=== PATIENT | female | born 1955 | race Caucasian/White ===

== ENCOUNTER 2017-08-13 08:33 | Observation (INO) | payer BC ==
[~2017-08-13 08:33] MED LIST: ACETAMINOPHEN 1000 MG/100 ML IVPB; CEFAZOLIN 1 GM INJ; CEFAZOLIN 2 GM/50 ML (PMX) 50 ML IVPB
[2017-08-13] MEDS ORDERED: MIDAZOLAM 1 MG/ML 2 ML INJ (09:54)
[2017-08-13] MEDS ORDERED: FENTAnyl 50 MCG/ML VIAL (09:55)
[2017-08-13] MEDS ORDERED: PROPOFOL 20 ML (09:56)
[2017-08-13] MEDS ORDERED: LIDOCAINE 1% (MDV) 20 ML INJ (09:58)
[2017-08-13] MEDS ORDERED: GLYCOPYRROLATE 0.4 MG INJ (10:01)
[2017-08-13] MEDS ORDERED: NEOSTIGMINE 3 MG/3 ML SYRINGE (10:01)
[2017-08-13] MEDS ORDERED: SUCCINYLCHOLINE CHLORIDE 100 MG/5 ML SYG IV (10:20)
[2017-08-13] MEDS ORDERED: BUPIVACAINE 0.25% (MPF) 30 ML INJ (10:30)
[2017-08-13] MEDS ORDERED: BUPIVACAINE 0.5%/EPI (SDV) 30 ML INJ (10:30)
[2017-08-13] MEDS ORDERED: ONDANSETRON 4 MG INJ (10:56)
[2017-08-13] MEDS ORDERED: METOCLOPRAMIDE 10 MG INJ (10:58)
[2017-08-13] MEDS: SODIUM CHLORIDE 0.9% 1L IRRIG IRR (11:09)
[2017-08-13] MEDS: BUPIVACAINE 0.25% (MPF) 30 ML INJ INJ (11:34)
[2017-08-13] MEDS ORDERED: ALBUTEROL 0.5% (NEB) 2.5 MG/0.5 ML AMP (11:50)
[2017-08-13] MEDS: ALBUTEROL 0.083% (NEB) 2.5 MG/3 ML AMP HHN (11:50)
[2017-08-13] MEDS: IPRATROPIUM (NEB) 0.5 MG/2.5 ML AMP HHN (11:50)
[2017-08-13] MEDS ORDERED: FENTAnyl 50 MCG/ML VIAL IV ×2 (12:00)
[2017-08-13] MEDS: BISACODYL (EC) 5 MG TAB PO (12:00)
[2017-08-13] MEDS ORDERED: ONDANSETRON 4 MG INJ IV ×2 (12:00→20:00)
[2017-08-13] MEDS ORDERED: hydrALAzine 20 MG INJ IV (12:00)
[2017-08-13] MEDS ORDERED: HYDROmorphONE (0.2 MG/ML) 10ML SYG IV ×2 (12:00)
[2017-08-13] MEDS ORDERED: METOCLOPRAMIDE 10 MG INJ IV (12:00)
[2017-08-13] MEDS ORDERED: ALBUTEROL/IPRATROPIUM (NEB) 3 ML AMP HHN (14:00)
[2017-08-13] MEDS: HYDROCODONE/APAP (5/325) TAB PO ×2 (15:47→23:55)
[2017-08-13] MEDS ORDERED: HYDROmorphONE 0.5 MG/0.5 ML SYG IV (16:00)
[2017-08-13] MEDS: METHYLPREDNISOLONE 40 MG INJ IV (19:46)
[2017-08-13] MEDS ORDERED: MAGNESIUM HYDROXIDE 30ML CUP PO (20:00)
[2017-08-13] MEDS ORDERED: NACL 0.9% 3 ML SYG IV (20:00)
[2017-08-13] MEDS ORDERED: BISACODYL (EC) 5 MG TAB PO (20:00)
[2017-08-13] MEDS ORDERED: ACETAMINOPHEN 325 MG TAB PO (20:00)
[2017-08-13] MEDS ORDERED: DOCUSATE SODIUM 100 MG CAP PO (20:00)
[2017-08-13] MEDS ORDERED: GLUCOSE GEL 15 GRAM TUBE BUCCAL (21:00)
[2017-08-13] MEDS ORDERED: GLUCAGON 1 MG INJ IM (21:00)
[2017-08-13] MEDS: ALBUTEROL/IPRATROPIUM (NEB) 3 ML AMP HHN (21:00)
[2017-08-13] MEDS ORDERED: METHYLPREDNISOLONE 40 MG INJ IV (21:00)
[2017-08-13] MEDS ORDERED: GLUCOSE GEL 15 GRAM TUBE PO ×2 (21:00)
[2017-08-13] MEDS ORDERED: DEXTROSE 50% 50 ML SYRINGE IV ×2 (21:00)
[2017-08-13] MEDS: SOD CHLORIDE 0.9% 1,000 ML IV ×2 (21:11→23:19)
[2017-08-13] MEDS: INSULIN ASPART [NOVOLOG] 3 ML PEN SC (22:00)
[2017-08-13] MEDS: GEMFIBROZIL 600 MG TAB PO (22:16)
[2017-08-14] MEDS: ALBUTEROL/IPRATROPIUM (NEB) 3 ML AMP HHN ×3 (02:00→14:44)
[2017-08-14] MEDS: ACCU-CHEK XX (02:00)
[2017-08-14] MEDS: PANTOPRAZOLE 40 MG INJ IV (05:33)
[2017-08-14] MEDS: INSULIN ASPART [NOVOLOG] 3 ML PEN SC ×3 (08:00→17:42)
[2017-08-14] MEDS: METHYLPREDNISOLONE 40 MG INJ IV (09:46)
[2017-08-14] MEDS: BENAZEPRIL 10 MG TAB PO (09:46)
[2017-08-14] MEDS: METOPROLOL (XL) 50 MG TAB PO (09:47)
[2017-08-14] MEDS: GEMFIBROZIL 600 MG TAB PO (09:47)
[2017-08-14] MEDS: HYDROCODONE/APAP (5/325) TAB PO ×2 (09:47→14:45)
== END 2017-08-14 18:26 | disposition home or self-care (01) ==
LOC: SDS 08:33 → REC 16:57 → PP2 22:50
PROVIDERS: Surgery
DX: K64.8 Other hemorrhoids (principal); K64.4 Residual hemorrhoidal skin tags; E11.9 Type 2 diabetes mellitus without complications; I10 Essential (primary) hypertension
CPT/HCPCS: 45300; 71045; 82962; 88304; 94640; 94664; 99217; G0378